=== PATIENT | female | born 1950 | race Caucasian/White ===

== ENCOUNTER 2023-09-19 14:31 | Emergency (ER) | payer BC, MEDICAID ==
[~2023-09-19] VITALS: Ht 152.4 cm; Wt 45.5 kg
[~2023-09-19 14:31] MED LIST changes: -BUPIVACAINE liposomal/PF 13.3 MG/ML vial IM ONE; -BUPIVAcaine/PF 2.5mg/ml (0.25%) 10ml vial ONE; -CEFD300C3 PO; -acetaminophen 1,000mg/100ml IV 100 ML IV ONE; -hydrALAZINE 20mg/ml inj. IV PRN; -labetalol 20mg/4ml (5mg/ml) syringe IV PRN; -meperidine/PF 25mg/ml syringe IV PRN; -methylene blue (5mg/ml) 50mg/10ml ampul IV ONE; -morphine 2 MG/ML inj. syringe IV PRN; -morphine 4 MG/ML inj SYRINge IV PRN; -ondansetron/PF 4mg/2ml inj IV PRN; -proCHLORperazine 10 MG/2 ml inj IV PRN; -ringers solution, lacted 1,000 ML IV SCH
[2023-09-19 14:39] VITALS: BP 139/79; PULSE 95; RESP 18; O2SAT 95
[2023-09-19] MEDS ORDERED: CEFD300C3 PO (14:55)
[2023-09-19 15:06] VITALS: TEMP 98.5
== END 2023-09-19 15:14 | disposition home or self-care (01) ==
LOC: ER 14:32
DX: J20.9 Acute bronchitis, unspecified (principal); Z88.2 Allergy status to sulfonamides
CPT/HCPCS: 99283

== ENCOUNTER → 2023-09-19 | Day surgery (SDC) | payer BC, MEDICAID ==
[2023-09-18 14:51] LABS: BASOPHILS % (AUTO) 0.3 % (0-1); EOSINOPHILS # (AUTO) 0.1 X10'3 (0-0.9); EOSINOPHILS % (AUTO) 0.7 % (0-6); LYMPHOCYTES # (AUTO) 0.4 X10'3 (1.1-4.8); LYMPHOCYTES % (AUTO) 4.7 % (21-51); MEAN CORPUSCULAR HGB CONC 34.6 g/dL (33.0-36.5); MEAN CORPUSCULAR VOLUME 98.3 FL (78-98); MONOCYTES # (AUTO) 0.8 X10'3 (0-0.9); MONOCYTES % (AUTO) 8.5 % (2-12); NEUTROPHILS % (AUTO) 85.8 % (42-75); PRE OP HEMATOCRIT 33.6 % (35.0-45.0); PRE OP HEMOGLOBIN 11.6 g/dL (12.0-16.0); PRE OP PLATELET COUNT 319 X10'3 (140-440); PRE OP WHITE BLOOD COUNT 9.3 10'3 (4.8-10.8); RED BLOOD COUNT 3.42 X10'6 (4.20-5.60); RED CELL DISTRIBUTION WIDTH 13.1 % (11.5-14.5)
[2023-09-18 15:04] LABS: PRE OP PROTIME 11.2 SECONDS (9.0-12.0)
[2023-09-18 15:06] LABS: ALBUMIN 2.7 G/DL (3.4-5.0); ALBUMIN/GLOBULIN RATIO 0.6 (1.1-1.5); ALKALINE PHOSPHATASE 106 IU/L (46-116); BLOOD UREA NITROGEN 10 MG/DL (7-18); BUN/CREATININE RATIO 12.2 (10.0-20.0); CALCIUM 8.6 MG/DL (8.5-10.1); CHLORIDE 101 MMOL/L (99-107); CREATININE 0.82 MG/DL (0.40-0.90); PRE OP ALT 23 U/L (30-65); PRE OP ANION GAP 5 (8-16); PRE OP AST 25 U/L (10-37); PRE OP BILIRUB, TOTAL 0.4 MG/DL (0.0-1.0); PRE OP GLUCOSE 169 MG/DL (70-104); PRE OP POTASSIUM 4.4 MMOL/L (3.4-5.1); PRE OP SODIUM 134 MMOL/L (135-145); TOTAL CARBON DIOXIDE 27.7 MMOL/L (24-32); TOTAL PROTEIN 7.4 G/DL (6.4-8.2); eCRCL 43 ML/MIN; eGFR 68 ML/MIN
[~2023-09-19] VITALS: Ht 152.4 cm; Wt 45.5 kg
[~2023-09-19] MED LIST: BUPIVACAINE liposomal/PF 13.3 MG/ML vial IM ONE; BUPIVAcaine/PF 2.5mg/ml (0.25%) 10ml vial ONE; CEFD300C3 PO; GARLIC; VITAMIN B-12 PO; acetaminophen 1,000mg/100ml IV 100 ML IV ONE; hydrALAZINE 20mg/ml inj. IV PRN; labetalol 20mg/4ml (5mg/ml) syringe IV PRN; meperidine/PF 25mg/ml syringe IV PRN; methylene blue (5mg/ml) 50mg/10ml ampul IV ONE; morphine 2 MG/ML inj. syringe IV PRN; morphine 4 MG/ML inj SYRINge IV PRN; ondansetron/PF 4mg/2ml inj IV PRN; proCHLORperazine 10 MG/2 ml inj IV PRN; ringers solution, lacted 1,000 ML IV SCH
[2023-09-19] MEDS: cefazolin 2gm/D5W 100mL 100 ML IV ONE (05:30)
[2023-09-19 05:55] VITALS: BP 139/67; PULSE 85; RESP 14; TEMP 97.6; O2SAT 95
[2023-09-19] MEDS: famotidine 20mg tablet PO ONE (06:49)
[2023-09-19] MEDS: ringers solution, lacted 1,000 ML IV SCH (06:49)
== END | disposition home or self-care (01) ==
LOC: PAS 05:43
PROVIDERS: ATTEND Surgery
DX: C50.911 Malignant neoplasm of unspecified site of right female breast (principal); I25.2 Old myocardial infarction; Z53.8 Procedure and treatment not carried out for other reasons; J44.9 Chronic obstructive pulmonary disease, unspecified; Z79.899 Other long term (current) drug therapy; Z90.89 Acquired absence of other organs; Z98.51 Tubal ligation status; Z98.890 Other specified postprocedural states; Z88.2 Allergy status to sulfonamides
CPT/HCPCS: 36415; 71046; 80053; 85025; 85610; 85730; 86885; 86900; 86901; 93005; J0690; J3490; J7120; Q9968; C9290

== ENCOUNTER 2023-10-09 09:01 | Observation (INO) | payer BC, MEDICAID ==
[2023-10-09] VITALS (21 sets, daily range): BP systolic 106–147; BP diastolic 53–74; PULSE 68–87; RESP 14–22; TEMP 97.6–98.8; O2SAT 94–100
[~2023-10-09] VITALS: Ht 304.8 cm; Wt 45.0 kg
[2023-10-09] MEDS: cefazolin 2gm/D5W 100mL 100 ML IV ONE (05:30)
[2023-10-09] MEDS ORDERED: methylene blue (5mg/ml) 50mg/10ml ampul IV ONE (09:49)
[2023-10-09] MEDS ORDERED: BUPIVAcaine/PF 2.5mg/ml (0.25%) 10ml vial ONE (09:49)
[2023-10-09] MEDS ORDERED: BUPIVACAINE liposomal/PF 13.3 MG/ML vial IM ONE (09:49)
[2023-10-09 09:58] LABS: BASOPHILS % (AUTO) 0.5 % (0-1); LYMPHOCYTES # (AUTO) 0.7 X10'3 (1.1-4.8); LYMPHOCYTES % (AUTO) 16.9 % (21-51); MEAN CORPUSCULAR HGB CONC 34.1 g/dL (33.0-36.5); MEAN CORPUSCULAR VOLUME 99.6 FL (78-98); MEAN PLATELET VOLUME 7.7 FL (7.4-10.4); MONOCYTES # (AUTO) 0.3 X10'3 (0-0.9); MONOCYTES % (AUTO) 7.7 % (2-12); NEUTROPHILS # (AUTO) 2.9 X10'3 (1.8-7.7); NEUTROPHILS % (AUTO) 73.9 % (42-75); PRE OP HEMATOCRIT 39.1 % (35.0-45.0); PRE OP HEMOGLOBIN 13.3 g/dL (12.0-16.0); PRE OP PLATELET COUNT 285 X10'3 (140-440); PRE OP WHITE BLOOD COUNT 3.9 10'3 (4.8-10.8); RED BLOOD COUNT 3.93 X10'6 (4.20-5.60); RED CELL DISTRIBUTION WIDTH 13.6 % (11.5-14.5)
[2023-10-09 10:08] LABS: PRE OP PARTIAL THROMB. TIME 29 SECONDS (22-32); PROTHROMBIN TIME 10.9 SECONDS (9.0-12.0)
[2023-10-09 10:12] LABS: ALANINE AMINOTRANSFERASE 18 U/L (12-78); ALBUMIN 3.3 G/DL (3.4-5.0); ALBUMIN/GLOBULIN RATIO 0.7 (1.1-1.5); ALKALINE PHOSPHATASE 113 IU/L (46-116); ANION GAP 6 (8-16); ASPARTATE AMINO TRANSFERASE 21 U/L (10-37); BILIRUBIN,TOTAL 0.4 MG/DL (0.1-1.0); BLOOD UREA NITROGEN 12 MG/DL (7-18); BUN/CREATININE RATIO 18.5 (10.0-20.0); CALCIUM 9.1 MG/DL (8.5-10.1); CHLORIDE 104 MMOL/L (99-107); CREATININE 0.65 MG/DL (0.40-0.90); GLUCOSE 78 MG/DL (70-104); POTASSIUM 3.8 MMOL/L (3.5-5.1); SODIUM 140 MMOL/L (135-145); TOTAL CARBON DIOXIDE 29.9 MMOL/L (24-32); TOTAL PROTEIN 8.2 G/DL (6.4-8.2); eCRCL 54 ML/MIN; eGFR 89 ML/MIN
[2023-10-09] MEDS: methylene blue (5mg/ml) 50mg/10ml ampul IV ONE (10:30)
[2023-10-09] MEDS ORDERED: sevoflurane 250ml liquid IH ONE (10:32)
[2023-10-09] MEDS ORDERED: midazolam 1 mg/ML 2ml injection ONE (10:36)
[2023-10-09] MEDS ORDERED: fentaNYL /PF 50mcg/ml 5ml ampule ONE (10:36)
[2023-10-09] MEDS ORDERED: 0.9 % SODIUM CHLORIDE 10 ML VIAL ONE ×3 (11:05)
[2023-10-09] MEDS ORDERED: propofol inj 20 ML IV ONE (11:05)
[2023-10-09] MEDS ORDERED: BUPIVAcaine/PF 7.5mg/ml (0.75%) 10ml vial ONE ×2 (11:05)
[2023-10-09] MEDS ORDERED: dexamethasone sod phosphate 4mg/ml inj. ONE (11:05)
[2023-10-09] MEDS ORDERED: labetalol 20mg/4ml (5mg/ml) syringe IV PRN (11:50)
[2023-10-09] MEDS ORDERED: meperidine/PF 25mg/ml syringe IV PRN ×3 (11:50)
[2023-10-09] MEDS ORDERED: enalaprilat dihydrate 2.5mg/2ml vial IV PRN (11:50)
[2023-10-09] MEDS ORDERED: ondansetron/PF 4mg/2ml inj IV PRN ×2 (11:50→15:25)
[2023-10-09] MEDS ORDERED: proCHLORperazine 10 MG/2 ml inj IV PRN (11:50)
[2023-10-09] MEDS ORDERED: morphine 4 MG/ML inj SYRINge IV PRN (11:50)
[2023-10-09] MEDS ORDERED: morphine 2 MG/ML inj. syringe IV PRN ×2 (11:50→15:25)
[2023-10-09] MEDS ORDERED: ondansetron/PF 4mg/2ml inj ONE (14:02)
[2023-10-09] MEDS ORDERED: acetaminophen 1,000mg/100ml IV 100 ML IV ONE (14:30)
[2023-10-09] MEDS ORDERED: ceFAZolin 1000mg inj ONE (14:35)
[2023-10-09] MEDS: ringers solution, lacted 1,000 ML IV SCH ×3 (14:54→16:49)
[2023-10-09] MEDS: famotidine 20mg tablet PO ONE (14:55)
[2023-10-09] MEDS ORDERED: HYDROcodone/acetaminophen 5mg/325mg tablet PO PRN (15:25)
[2023-10-09] MEDS ORDERED: bisacodyl 10mg suppository rectal RC PRN (15:25)
[2023-10-09] MEDS: ceFAZolin 1GM/D5W- ADD-VANTAGE 50 ML IV SCH (19:47)
[2023-10-10 02:53] VITALS: BP 105/40; PULSE 68; RESP 16; TEMP 97; O2SAT 95
[2023-10-10 06:51] VITALS: BP 111/47; PULSE 74; RESP 20; TEMP 97.6; O2SAT 96
[2023-10-10 07:45] VITALS: RESP 20; O2SAT 96
[2023-10-10 10:34] VITALS: BP 134/51; PULSE 78; RESP 14; TEMP 97.7; O2SAT 95
== END 2023-10-10 14:40 | disposition home or self-care (01) ==
LOC: PAS 09:01 → PAS IN 15:30 → SUR 3N 17:10
PROVIDERS: ADMIT Surgery; ATTEND Surgery
DX: C50.412 Malignant neoplasm of upper-outer quadrant of left female breast (principal); C50.311 Malignant neoplasm of lower-inner quadrant of right female breast; Z90.13 Acquired absence of bilateral breasts and nipples; Z79.899 Other long term (current) drug therapy
CPT/HCPCS: 19303; 36415; 38525; 38792; 80053; 85025; 85610; 85730; 87081; 96365; 96366; G0378; J0131; J0690; J1100; J2250; J2405; J2704; J3010; J3490; J7120; Q9968; A4215; A4618; A6253; A6258; A6449; A7000; C9250; C9290